=== PATIENT | male | born 1940 | race Caucasian/White ===

== ENCOUNTER 2024-06-21 09:50 | Outpatient (CLI) | payer MEDICARE | END 2024-06-21 09:51 | disposition home or self-care (01) | LOC: CSHULT 09:50 | PROVIDERS: ATTEND Urology | DX: N20.0 Calculus of kidney (principal); N40.1 Benign prostatic hyperplasia with lower urinary tract symptoms; Z98.890 Other specified postprocedural states | CPT/HCPCS: 74018; 76770 ==